=== PATIENT | female | born 1990 | race American Indian/Alaskan Native ===

== ENCOUNTER 2021-09-19 07:37 | Emergency (ER) | payer OTHER ==
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
[2021-09-19] MEDS ORDERED: SODIUM CHLORIDE 0.9% 1000 ML 1,000 ML IV ONE (08:02)
[2021-09-19] MEDS ORDERED: oxyCODONE /ACETAMINOPHEN 5-325MG TAB PO ONE (08:04)
[2021-09-19] MEDS ORDERED: ONDANSETRON 4 MG/2 ML INJ IV ONE (08:04)
[2021-09-19 08:56] LABS: Alanine Aminotransferase 39 units/L (7-56); Albumin 4.2 g/dL (3.9-5); BUN/Creatinine Ratio 25; Blood Urea Nitrogen 20 mg/dL (7-17); Calcium 9.4 mg/dL (8.4-10.2); Hemolysis Index 37
[2021-09-19 09:03] LABS: Hematocrit 42.9 % (30.3-42.9); Hemoglobin 13.4 gm/dl (10.1-14.3); Mean Corpuscular HGB Conc 31 % (30-34); Mean Corpuscular Volume 90 fl (79-97); Platelet Count 366 K/mm3 (140-440); Red Blood Count 4.76 M/mm3 (3.65-5.03); Red Cell Distribution Width 14.8 % (13.2-15.2)
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
[2021-09-19 11:36] VITALS: BP 111/65
== END 2021-09-19 11:49 | disposition home or self-care (01) ==
LOC: ED 07:37
DX: S20.213A Contusion of bilateral front wall of thorax, initial encounter (principal); S00.83XA Contusion of other part of head, initial encounter; S00.81XA Abrasion of other part of head, initial encounter; F10.129 Alcohol abuse with intoxication, unspecified; S09.90XA Unspecified injury of head, initial encounter; R10.30 Lower abdominal pain, unspecified; V49.49XA Driver injured in collision with other motor vehicles in traffic accident, initial encounter; Y93.89 Activity, other specified; Y92.89 Other specified places as the place of occurrence of the external cause; Y99.8 Other external cause status
CPT/HCPCS: 36415; 70450; 71260; 72125; 73030; 73130; 73590; 74177; 80053; 83690; 84703; 85025; 96361; 96374; 99284; J2405; J7030; Q9967; Q0162